=== PATIENT | female | born 1965 | race Caucasian/White ===

== ENCOUNTER 2017-06-13 19:18 | Emergency (ER) | payer MEDICAID ==
[~2017-06-13] VITALS: Ht 152.4 cm; Wt 68.9 kg
[2017-06-13 19:27] VITALS: Ht 152.4 cm; Wt 68.9 kg
[2017-06-13 21:07] LABS: CALCIUM 8.5 mg/dL (8.5-10.1); CARBON DIOXIDE 28.7 mmol/L (21-32); CHLORIDE SERUM 105 mmol/L (98-107); CREATININE SERUM 0.6 mg/dL (0.6-1.0); GFR1 > 60 mL/min; GLUCOSE SERUM 101 mg/dL (74-106); POTASSIUM SERUM 3.4 mmol/L (3.5-5.1); SODIUM SERUM 139 mmol/L (136-145)
[2017-06-13 21:12] LABS: ALBUMIN 3.7 g/dL (3.4-5.0); ALKALINE PHOSPHATASE 114 U/L (46-116); ALT/SGPT 26 U/L (14-59); AST/SGOT 20 U/L (15-37); BILIRUBIN TOTAL 0.3 mg/dL (0.20-1.00); TOTAL PROTEIN, SERUM 7.7 g/dL (6.4-8.2)
[2017-06-13 21:15] LABS: BASOPHIL % 0.9 % (0-2); PLATELET COUNT 308 x10^3mcL (130-400)
[2017-06-14 00:01] LABS: APPEARANCE CSF CLEAR; COLOR CSF COLORLESS
[2017-06-14 00:02] LABS: RBC CSF 79 /cumm (0); WBC CSF 2 /cumm (0-5)
[2017-06-14 00:03] LABS: APPEARANCE CSF CLEAR; COLOR CSF COLORLESS; RBC CSF 0 /cumm (0); WBC CSF 0 /cumm (0-5)
[2017-06-14 00:44] LABS: TOTAL PROTEIN CSF 23.5 mg/dL (15-45)
[2017-06-14 02:00] VITALS: BP 125/65
== END 2017-06-14 02:21 | disposition home or self-care (01) ==
LOC: ED 19:18
PROVIDERS: Emergency Medicine
DX: R51 Headache (principal)
CPT/HCPCS: J2001; J2270; J2765

== ENCOUNTER 2017-06-21 12:10 | Emergency (ER) | payer MEDICAID ==
[~2017-06-21] VITALS: Ht 157.5 cm; Wt 67.6 kg
[2017-06-21 12:40] VITALS: BP 121/85; Ht 157.5 cm; Wt 67.6 kg
== END 2017-06-21 15:13 | disposition left against medical advice (07) ==
LOC: ED 12:10
DX: Z53.21 Procedure and treatment not carried out due to patient leaving prior to being seen by health care provider (principal)